=== PATIENT | female | born 1970 | race Caucasian/White ===

== ENCOUNTER 2018-04-03 21:52 | Emergency (ER) | payer BC ==
[2018-04-03] MEDS: IBUPROFEN 800 MG TAB PO (22:25)
[2018-04-03] MEDS: DIPHTH/TET/ACEL PERTUSS (ADULT) 0.5 ML VIAL IM* (22:27)
== END 2018-04-04 00:26 | disposition home or self-care (01) ==
LOC: FTE 04-04 00:26
DX: S60.410A Abrasion of right index finger, initial encounter (principal); W23.0XXA Caught, crushed, jammed, or pinched between moving objects, initial encounter; Y92.9 Unspecified place or not applicable; Z23 Encounter for immunization
CPT/HCPCS: 29130; 73140; 90471; 90715; 99283-25